=== PATIENT | male | born 1955 | race Caucasian/White ===

== ENCOUNTER 2016-09-28 12:38 | Emergency (ER) | payer MEDICARE, MEDICAID ==
[~2016-09-28] VITALS: Ht 172.7 cm; Wt 68.0 kg
[~2016-09-28 12:38] MED LIST: AMOXICILLIN500 MG PO; ASPIRIN325 M2 PO; CLINDAMYCIN HC300 MG PO; COREG12.5 M1 PO; COREG6.25 MG PO; CRESTOR10 MG PO; LISINOPRIL10 MG PO; NAPROSYN500 MG PO; PENICILLIN VK500 MG PO; PRINIVIL10 MG PO; Peridex 473 ML473 ML PO; ULTRAM50 MG PO; VICODIN 5/500 505 MG PO; VISTARIL25 M2 PO
[2016-09-28] MEDS ORDERED: LIPITOR10 MG PO (13:09)
[2016-09-28] MEDS ORDERED: ULTRAM50 MG PO (14:33)
[2016-09-28] MEDS ORDERED: NAPROXEN500 MG PO (14:33)
[2016-09-28] MEDS ORDERED: PENICILLIN VK500 MG PO (14:33)
== END 2016-09-28 14:36 | disposition home or self-care (01) ==
LOC: ED 12:38
DX: K04.7 Periapical abscess without sinus (principal); R22.0 Localized swelling, mass and lump, head; I10 Essential (primary) hypertension; E78.5 Hyperlipidemia, unspecified; Z79.82 Long term (current) use of aspirin; Z79.899 Other long term (current) drug therapy

== ENCOUNTER → 2017-03-23 | Outpatient (CLI) | payer MEDICARE, MEDICAID ==
[~2017-03-23] MED LIST changes: +LIPITOR10 MG PO; +NAPROXEN500 MG PO
[2017-03-23 11:49] LABS: BASO % 0.5 % (0.0-1.0); EOS # 0.2 10*3/uL (0.0-0.4); HEMATOCRIT 42.8 % (42.0-52.0); HEMOGLOBIN 14.3 g/dl (14.0-18.0); LYMPH # 2.1 10*3/uL (1.3-4.4); LYMPH % 26.8 % (27.0-41.0); MEAN CELL VOLUME 89.2 fl (80.0-94.0); MEAN CORPUSCULAR HGB 29.8 pg (27.0-31.0); MEAN CORPUSCULAR HGB CONC 33.4 g/dl (33.0-37.0); MEAN PLATELET VOLUME 11.3 fl (9.6-12.3); MONO # 0.8 10*3/uL (0.1-1.0); MONO % 9.5 % (3.0-9.0); NEUT # 4.8 10*3/uL (2.3-7.9); NEUT % 59.9 % (47.0-73.0); PLATELET COUNT AUTOMATED 227 10*3/uL (130-400); RED CELL DISTRI WIDTH 12.6 % (0-14.5)
[2017-03-23 12:11] LABS: ALKALINE PHOSPHATASE 73 U/L (45-117); BUN 16 mg/dl (7-24); CHLORIDE 104 mmol/L (98-107); CHOLESTEROL 123 mg/dL (<200); CREATININE 1.27 mg/dL (0.70-1.30); HDL CHOLESTEROL 41 mg/dl (40-60); LDL CHOLESTEROL 57 mg/dL (9-159); POTASSIUM 4.6 mmol/L (3.5-5.1); SGOT/AST 44 IU/L (3-35); SGPT/ALT 76 U/L (12-78); SODIUM 139 mmol/L (136-145); TOTAL PROTEIN 8.1 gm/dL (6.4-8.2); TRIGLYCERIDES 126 mg/dl (<150); VLDL CHOLESTEROL 25 mg/dL (6-40)
== END | disposition home or self-care (01) ==
LOC: LAB 11:19
PROVIDERS: Internal Medicine
DX: Z12.5 Encounter for screening for malignant neoplasm of prostate (principal); I25.10 Atherosclerotic heart disease of native coronary artery without angina pectoris; E78.5 Hyperlipidemia, unspecified

== ENCOUNTER → 2022-04-19 | Outpatient (CLI) | payer OTHER ==
[2022-04-19 11:16] LABS: BASO # 0.1 10*3/uL (0.0-0.1); BASO % 0.5 % (0.0-1.0); EOS # 0.3 10*3/uL (0.0-0.4); EOS % 2.6 % (1.0-4.0); HEMATOCRIT 42.3 % (42.0-52.0); LYMPH # 1.7 10*3/uL (1.3-4.4); MEAN CELL VOLUME 88.1 fl (80.0-94.0); MEAN CORPUSCULAR HGB 29.6 pg (27.0-31.0); MEAN CORPUSCULAR HGB CONC 33.6 g/dl (33.0-37.0); MEAN PLATELET VOLUME 10.5 fl (9.6-12.3); MONO # 0.8 10*3/uL (0.1-1.0); MONO % 8.2 % (3.0-9.0); NEUT # 7.1 10*3/uL (2.3-7.9); NEUT % 71.4 % (47.0-73.0); PLATELET COUNT AUTOMATED 285 10*3/uL (130-400); RED CELL DISTRI WIDTH 13.2 % (0-14.5); WHITE BLOOD COUNT 9.9 10*3/uL (4.8-10.8)
[2022-04-19 11:32] LABS: ALKALINE PHOSPHATASE 58 U/L (46-116); BUN 20 mg/dl (9-23); CHLORIDE 104 mmol/L (98-107); CHOLESTEROL 152 mg/dL (<200); CREATININE 1.16 mg/dL (0.70-1.30); LDL CHOLESTEROL 56 mg/dL (9-159); POTASSIUM 4.3 mmol/L (3.4-5.1); SGPT/ALT 20 U/L (10-49); SODIUM 138 mmol/L (136-145); TOTAL PROTEIN 7.7 gm/dL (6.0-8.0); TRIGLYCERIDES 246 mg/dl (<150)
[2022-04-19 11:43] LABS: BILIRUBIN Negative (Negative); BLOOD Negative (Negative); CLARITY Clear (Clear); COLOR Yellow (Yellow); GLUCOSE Negative (Negative); KETONE Negative (Negative); LEUKO ESTERASE Negative (Negative); NITRITE Negative (Negative); SPECIFIC GRAVITY 1.015 (1.001-1.030); UROBILINOGEN 0.2 E.U./dl (0.0-1.0)
[2022-04-19 11:57] LABS: BACTERIA TRACE; WBC 0-2 wbc/hpf (0-5)
== END | disposition home or self-care (01) ==
LOC: LAB 10:43
PROVIDERS: ATTEND Internal Medicine
DX: Z12.5 Encounter for screening for malignant neoplasm of prostate (principal); I25.10 Atherosclerotic heart disease of native coronary artery without angina pectoris; E78.1 Pure hyperglyceridemia; I10 Essential (primary) hypertension

== ENCOUNTER → 2022-11-10 | Outpatient (CLI) | payer OTHER ==
[2022-11-10 11:54] LABS: BASO % 0.5 % (0.0-1.0); EOS # 0.3 10*3/uL (0.0-0.4); EOS % 4.1 % (1.0-4.0); HEMATOCRIT 39.3 % (42.0-52.0); LYMPH # 2.3 10*3/uL (1.3-4.4); MEAN CELL VOLUME 89.5 fl (80.0-94.0); MEAN CORPUSCULAR HGB 29.8 pg (27.0-31.0); MEAN CORPUSCULAR HGB CONC 33.3 g/dl (33.0-37.0); MONO # 0.7 10*3/uL (0.1-1.0); NEUT # 4.4 10*3/uL (2.3-7.9); NEUT % 56.1 % (47.0-73.0); PLATELET COUNT AUTOMATED 232 10*3/uL (130-400); RED BLOOD COUNT 4.39 10*6/uL (4.50-5.90); RED CELL DISTRI WIDTH 12.6 % (0-14.5); WHITE BLOOD COUNT 7.8 10*3/uL (4.8-10.8)
[2022-11-10 12:18] LABS: POTASSIUM 5.3 mmol/L (3.4-5.1); TOTAL PROTEIN 7.4 gm/dL (6.0-8.0)
== END | disposition home or self-care (01) ==
LOC: LAB 11:22
PROVIDERS: ATTEND Internal Medicine
DX: E78.5 Hyperlipidemia, unspecified (principal); I10 Essential (primary) hypertension; Z79.899 Other long term (current) drug therapy

== ENCOUNTER → 2023-05-16 | Outpatient (CLI) | payer OTHER ==
[2023-05-16 08:47] LABS: BASO # 0.1 10*3/uL (0.0-0.1); BASO % 0.7 % (0.0-1.0); EOS # 0.4 10*3/uL (0.0-0.4); HEMATOCRIT 42.6 % (42.0-52.0); LYMPH # 3.2 10*3/uL (1.3-4.4); LYMPH % 33.4 % (27.0-41.0); MEAN CELL VOLUME 92.2 fl (80.0-94.0); MEAN CORPUSCULAR HGB 29.9 pg (27.0-31.0); MEAN CORPUSCULAR HGB CONC 32.4 g/dl (33.0-37.0); MONO # 0.9 10*3/uL (0.1-1.0); MONO % 9.2 % (3.0-9.0); NEUT % 52.5 % (47.0-73.0); PLATELET COUNT AUTOMATED 214 10*3/uL (130-400); RED BLOOD COUNT 4.62 10*6/uL (4.50-5.90); RED CELL DISTRI WIDTH 13.1 % (0-14.5); WHITE BLOOD COUNT 9.5 10*3/uL (4.8-10.8)
[2023-05-16 09:51] LABS: ALKALINE PHOSPHATASE 55 U/L (46-116); BUN 18 mg/dl (9-23); CHLORIDE 108 mmol/L (98-107); CHOLESTEROL 141 mg/dL (<200); LDL CHOLESTEROL 60 mg/dL (9-159); POTASSIUM 4.7 mmol/L (3.4-5.1); SGPT/ALT 36 U/L (5-49); TOTAL PROTEIN 7.6 gm/dL (6.0-8.0); TRIGLYCERIDES 181 mg/dl (<150)
== END | disposition home or self-care (01) ==
LOC: LAB 08:24
PROVIDERS: ATTEND Internal Medicine
DX: Z12.5 Encounter for screening for malignant neoplasm of prostate (principal); Z13.29 Encounter for screening for other suspected endocrine disorder; E78.5 Hyperlipidemia, unspecified; I25.10 Atherosclerotic heart disease of native coronary artery without angina pectoris; I10 Essential (primary) hypertension

== ENCOUNTER 2024-07-19 16:49 | Emergency (ER) | payer OTHER ==
[~2024-07-19] VITALS: Wt 70.3 kg
[2024-07-19] MEDS ORDERED: NAPROSYN500 MG PO (17:16)
[2024-07-19] MEDS ORDERED: PENICILLIN VK500 MG PO (17:16)
[2024-07-19] MEDS ORDERED: Acetaminophen/Hydrocodone 5 MG/325 MG TABLET PO ONE (17:20)
== END 2024-07-19 17:47 | disposition home or self-care (01) ==
LOC: ED 16:49
DX: K02.9 Dental caries, unspecified (principal); Z79.899 Other long term (current) drug therapy; Z79.82 Long term (current) use of aspirin

== ENCOUNTER 2024-12-22 14:19 | Emergency (ER) | payer OTHER ==
[~2024-12-22] VITALS: Ht 172.7 cm; Wt 72.6 kg
[2024-12-22] MEDS ORDERED: Acetaminophen/Hydrocodone 5 MG/325 MG TABLET PO ONE (14:45)
[2024-12-22] MEDS ORDERED: Amoxicillin/Clavulanate Pota 875 MG TAB PO ONE (14:45)
[2024-12-22] MEDS ORDERED: MELOXICAM10 MG PO (14:45)
[2024-12-22] MEDS ORDERED: AMOX-CLAV 875-1 EACH PO ×2 (14:45→15:34)
[2024-12-22] MEDS ORDERED: LISINOPRIL5 MG PO (14:47)
[2024-12-22] MEDS ORDERED: METOPROLOL SUCC25 M2 PO (14:47)
[2024-12-22] MEDS ORDERED: ICOSAPENT ETHYL1 GM PO (14:48)
== END 2024-12-22 15:44 | disposition home or self-care (01) ==
LOC: ED 14:19
DX: K04.7 Periapical abscess without sinus (principal); I10 Essential (primary) hypertension; Z90.49 Acquired absence of other specified parts of digestive tract